=== PATIENT | male | born 1980 | race African-American/Black ===

== ENCOUNTER 2017-09-01 00:16 | Emergency (ER) | payer SELFPAY ==
[2017-09-01 00:23] VITALS: BP 123/77
[2017-09-01] MEDS ORDERED: Ketorolac INJ* 60 MG/2 ML VIAL IM ONE (01:11)
--- NOTE | 2017-09-01 02:47 | ED ---
Jose Sauceda Abhishek, scribed for Caitlin Jean-Baptiste MD on 09/01/17 at 0115 . Back Pain - HPI Summary HPI Summary: This patient is a 36 year old M presenting to [facility] with a chief complaint of back pain since 1999. Pt states it may be sciatica. Pt describes the pain as on the left side of the back and radiating to the lower back to the buttocks. The patient rates the pain 10/10 in severity. Symptoms aggravated by leg movement. Symptoms alleviated by nothing. - History of Current Complaint Chief Complaint: EDBackInjuryPain Stated Complaint: BACK INJURY Time Seen by Provider: 09/01/17 01:02 Hx Obtained From: Patient Onset/Duration: Sudden Onset Onset/Duration: Started Hours Ago - 199908/31/17 Timing: Constant Back Pain Location: Radiates To - buttocks Severity Initially: Severe Severity Currently: Severe Pain Intensity: 10 Pain Scale Used: 0-10 Numeric Aggravating Symptom(s): Movement Associated Signs And Symptoms: Positive: Negative - Allergies/Home Medications Allergies/Adverse Reactions: Allergies Allergy/AdvReac Type Severity Reaction Status Date / Time No Known Allergies Allergy Verified 09/01/17 00:22 PMH/Surg Hx/FS Hx/Imm Hx Endocrine/Hematology History: Denies: Hx Diabetes Cardiovascular History: Denies: Hx Cardiac Arrest, Hx Coronary Artery Disease Infectious Disease History: No Infectious Disease History: Denies: Traveled Outside the [place] in Last 30 Days - Family History Known Family History: Negative: Cardiac Disease, Hypertension, Diabetes - Social History Alcohol Use: Occasionally Hx Substance Use: No Substance Use Type: Reports: None Hx Tobacco Use: No Smoking Status (MU): Never Smoked Tobacco Review of Systems Constitutional: Negative Eyes: Negative ENT: Negative Cardiovascular: Negative Respiratory: Negative Gastrointestinal: Negative Genitourinary: Negative Musculoskeletal: Other - lower back pain radiating to the buttocks (left sided) Skin: Negative Neurological: Negative Psychological: Normal All Other Systems Reviewed And Are Negative: Yes Physical Exam - Summary Physical Exam Summary: VITAL SIGNS: Reviewed. GENERAL: ~Patient is a well-developed and nourished (MALE) who is lying comfortable in the stretcher. Patient is not in any acute respiratory distress. HEAD AND FACE: No signs of trauma. No ecchymosis, hematomas or skull depressions. No sinus tenderness. EYES: PERRLA, EOMI x 2, No injected conjunctiva, no nystagmus. EARS: Hearing grossly intact. Ear canals and tympanic membranes are within normal limits. MOUTH: Oropharynx within normal limits. NECK: Supple, trachea is midline, no adenopathy, no JVD, no carotid bruit, no c- spine tenderness, neck with full ROM. CHEST: Symmetric, no tenderness at palpation LUNGS: Clear to auscultation bilaterally. No wheezing or crackles. CVS: Regular rate and rhythm, S1 and S2 present, no murmurs or gallops appreciated. ABDOMEN: Soft, non-tender. No signs of distention. No rebound no guarding, and no masses palpated. Bowel sounds are normal. EXTREMITIES: FROM in all major joints, no edema, no cyanosis or clubbing. Bilateral straight leg test showed 30 degrees leg raise. Tenderness over the left lower back NEURO: Alert and oriented x 3. No acute neurological deficits. Speech is normal and follows commands. Neuro exam is intact SKIN: Dry and warm Triage Information Reviewed: Yes Vital Signs On Initial Exam: Initial Vitals Temp Pulse Resp BP Pulse Ox 98.6 F 102 16 123/77 97 09/01/17 00:18 09/01/17 00:18 09/01/17 00:18 09/01/17 00:18 09/01/17 00:18 Vital Signs Reviewed: Yes Diagnostics - Vital Signs Vital Signs Temp Pulse Resp BP Pulse Ox 09/01/17 00:18 98.6 F 102 16 123/77 97 - Laboratory Lab Statement: Any lab studies that have been ordered have been reviewed, and results considered in the medical decision making process. Back Pain Course/Dx - Course Course Of Treatment: This patient is a 36 year old M presenting to [facility] with a chief complaint of back pain since 1999. Pt describes the pain as on the left side of the back and radiating to the lower back to the buttocks. The pt recieved a muscle relaxant in the [facility] and was insistent on returning to work. Upon reevaluation, after giving the muscle relaxant, the pt was "feeling better " and his condition had improved significantly. The pt will be discharged home with a dx of lower back pain. - Diagnoses Provider Diagnoses: Lower back pain Discharge - Discharge Plan Condition: Stable Disposition: HOME Prescriptions: Cyclobenzaprine TAB* [Flexeril 10 MG TAB*] 10 mg PO TID PRN #20 tab PRN Reason: Pain - Back Ibuprofen TAB* [Motrin TAB* 800 MG] 800 mg PO Q6H PRN #30 tab PRN Reason: Pain - Back Patient Education Materials: Low Back Strain (ED) Referrals: [facility] [Outside] (follow up with PCP within 2 to 3 days) No Primary Care Phys,NOPCP [Primary Care Provider] - Additional Instructions: RETURN TO EMERGENCY DEPARTMENT FOR ANY NEW OR WORSENING SYMPTOMS The documentation as recorded by the Jose ribera Abhishek accurately reflects the service I personally performed and the decisions made by , Caitlin Jean-Baptiste MD.
== END 2017-09-01 02:42 | disposition home or self-care (01) ==
LOC: ED 00:16
DX: M54.5 Low back pain (principal)
CPT/HCPCS: 96372; 99282; J1885

== ENCOUNTER 2018-11-18 20:18 | Emergency (ER) | payer OTHER ==
[2018-11-18 20:26] VITALS: BP 140/84
--- NOTE | 2018-11-18 21:20 | ED ---
Skin Complaint - HPI Summary HPI Summary: Pt is a 37 y/o M presenting to the ED with a chief complaint of exposing himself to a bodily fluid. 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 He denies myalgia or fevers. - History of Current Complaint Chief Complaint: EDExposureBodyFluid Time Seen by Provider: 11/18/18 20:42 Stated Complaint: EXPOSURE PER PT Hx Obtained From: Patient Onset/Duration: Started Minutes Ago, Still Present Skin Exposure Onset/Duration: Minutes Ago Timing: Constant, Lasting Minutes Onset Severity: Mild Current Severity: None Pain Intensity: 0 Pain Scale Used: 0-10 Numeric Skin Location: Hand Aggravating Symptom(s): Nothing Alleviating Symptom(s): Nothing - Allergy/Home Medications Allergies/Adverse Reactions: Allergies Allergy/AdvReac Type Severity Reaction Status Date / Time No Known Allergies Allergy Verified 09/05/17 03:07 PMH/Surg Hx/FS Hx/Imm Hx Previously Healthy: Yes Endocrine/Hematology History: Denies: Hx Diabetes Cardiovascular History: Denies: Hx Cardiac Arrest, Hx Coronary Artery Disease Respiratory History: Denies: Hx Pulmonary Embolism Sensory History: Denies: Hx Legally Blind, Hx Vision Problem, Hx Deafness, Hx Hearing Aid, Hx Hearing Problem Opthamlomology History: Denies: Hx Legally Blind, Hx Vision Problem - Immunization History Date of Tetanus Vaccine: unknown Date of Influenza Vaccine: fall 2016 Infectious Disease History: No Infectious Disease History: Denies: Traveled Outside the [place] in Last 30 Days - Family History Known Family History: Negative: Cardiac Disease, Hypertension, Diabetes - Social History Alcohol Use: Occasionally Hx Substance Use: No Substance Use Type: Reports: None Hx Tobacco Use: No Smoking Status (MU): Never Smoked Tobacco Review of Systems Negative: Fever Negative: Myalgia Positive: Other - small cut on R middle finger All Other Systems Reviewed And Are Negative: Yes Physical Exam - Summary Physical Exam Summary: Appearance: Well-appearing, Well-nourished, lying in bed comfortable Skin: Warm, dry, no obvious rash. Small, barely visible laceration of the R middle finger. Eyes: sclera anicteric, no conjunctival pallor ENT: mucous membranes moist Neck: deferred Respiratory: No signs of respiratory distress Cardiovascular: Appears well perfused, pulses are nml Abdomen: deferred Musculoskeletal: Moving all 4 extremities without obvious discomfort Neurological: Awake and alert, mentation is normal, speech is fluent and appropriate Psychiatric: affect is normal, does not appear anxious or depressed Triage Information Reviewed: Yes Vital Signs On Initial Exam: Initial Vitals Temp Pulse Resp BP Pulse Ox 97.8 F 79 18 140/84 97 11/18/18 20:24 11/18/18 20:24 11/18/18 20:24 11/18/18 20:24 11/18/18 20:24 Vital Signs Reviewed: Yes Diagnostics - Vital Signs Vital Signs Temp Pulse Resp BP Pulse Ox 11/18/18 20:24 97.8 F 79 18 140/84 97 - Laboratory Lab Statement: Any lab studies that have been ordered have been reviewed, and results considered in the medical decision making process. Course/Dx - Course Course Of Treatment: Pt is a 37 y/o M presenting to the ED with a chief complaint of exposing himself to a bodily fluid. 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 The risk for exposure in this patient is very low, and I do not recommend post-exposure prophylaxis, but usual lab work will be ordered to ensure there is no infection. He will be d/c' ed home with a dx of laceration of R finger. He is stable and agreeable with this plan. - Diagnoses Provider Diagnoses: Recent laceration of finger Discharge - Sign-Out/Discharge Documenting (check all that apply): Patient Departure Patient Received Moderate/Deep Sedation with Procedure: No - Discharge Plan Condition: Stable Disposition: HOME Patient Education Materials: Laceration (ED) Referrals: [facility] [Outside] Angel Deng MD [Medical Doctor] - - Billing Disposition and Condition Condition: STABLE Disposition: Home - Attestation Statements Document Initiated by Scribe: Yes Documenting Scribe: Annabel Hendrix Provider For Whom Mohan is Documenting (Include Credential): Ricardo Byrne MD. Scribe Attestation: Annabel Sauceda scribed for Ricardo Byrne MD. on 11/22/18 at 1846. Scribe Documentation Reviewed: Yes Provider Attestation: The documentation as recorded by the Annabel ribera accurately reflects the service I personally performed and the decisions made by me, Ricardo Byrne MD. Status of Scribe Document: Viewed
[2018-11-18 21:58] LABS: Rapid HIV 1 Nonreactive (Nonreactive)
[2018-11-22 10:39] LABS: Hepatitis B Surface Antigen Nonreactive (Nonreactive)
[2018-11-22 10:57] LABS: Hepatitis B Surface Ab Not Immune (Immune)
[2018-11-22 11:03] LABS: Hepatitis C Antibody Nonreactive (Nonreactive)
== END 2018-11-18 21:20 | disposition home or self-care (01) ==
LOC: ED 20:18
DX: Z77.21 Contact with and (suspected) exposure to potentially hazardous body fluids (principal)
CPT/HCPCS: 36415; 86703; 86706; 86803; 87340; 99282

== ENCOUNTER 2019-03-20 00:03 | Emergency (ER) | payer BC, OTHER ==
--- NOTE | 2019-03-20 00:20 | ED ---
Back Pain - HPI Summary HPI Summary: The patient is a 38 y/o M presenting to [facility] with a chief complaint of sudden onset low back pain while trying to lift a heavy box tonight. He reports that he had been lifting a box with a bed frame in it, and he felt pain in the lower back. There is numbness extending from the low back into the buttocks and then into the legs. Currently, his symptoms are rated 10/10 in severity. Movement aggravates the pain, and rest alleviates it. He denies any bowel or bladder incontinence. He notes that he had a back injury over a year ago that was not treated with surgery, and he didnt have any imaging done. No PMHx. Nonsmoker, occasional EtOH, no substance use. Medications reviewed. Allergies noted. - History of Current Complaint Stated Complaint: BACK INJURY PER PT Time Seen by Provider: 03/20/19 00:13 Hx Obtained From: Patient Onset/Duration: Sudden Onset, Lasting Minutes, Still Present Onset/Duration: Started Minutes Ago, Still Present Timing: Constant Back Pain Location: Is Discrete @ - low back Severity Initially: Severe Severity Currently: Severe Pain Intensity: 10 Pain Scale Used: 0-10 Numeric Character: Sharp Aggravating Symptom(s): Movement Alleviating Symptom(s): Rest Associated Signs And Symptoms: Positive: Tingling - extending from back to buttocks and down legs. Negative: Bladder Incontinence, Bowel Incontinence - Allergies/Home Medications Allergies/Adverse Reactions: Allergies Allergy/AdvReac Type Severity Reaction Status Date / Time No Known Allergies Allergy Verified 09/05/17 03:07 PMH/Surg Hx/FS Hx/Imm Hx Endocrine/Hematology History: Denies: Hx Diabetes Cardiovascular History: Denies: Hx Cardiac Arrest, Hx Coronary Artery Disease Respiratory History: Denies: Hx Pulmonary Embolism Sensory History: Denies: Hx Legally Blind, Hx Vision Problem, Hx Deafness, Hx Hearing Aid, Hx Hearing Problem Opthamlomology History: Denies: Hx Legally Blind, Hx Vision Problem - Surgical History Surgical History: None Surgery Procedure, Year, and Place: none - Immunization History Date of Tetanus Vaccine: unknown Date of Influenza Vaccine: fall 2016 - Family History Known Family History: Negative: Cardiac Disease, Hypertension, Diabetes - Social History Alcohol Use: Occasionally Hx Substance Use: No Substance Use Type: Reports: None Hx Tobacco Use: No Smoking Status (MU): Never Smoked Tobacco Review of Systems Positive: Other - Negative: bowel incontinence Negative: incontinence Positive: Other - low back pain Positive: Numbness - from low back into buttocks and into legs All Other Systems Reviewed And Are Negative: Yes Physical Exam - Summary Physical Exam Summary: Appearance: Well-appearing, Well-nourished, lying in bed comfortably Skin: Warm, dry, no obvious rash Eyes: sclera anicteric, no conjunctival pallor ENT: mucous membranes moist, pharynx appears normal Neck: Supple, nontender Respiratory: Clear to auscultation, no signs of respiratory distress Cardiovascular: Normal S1, S2. No murmurs. Normal distal pulses in tibial and radial bilaterally. Abdomen: Soft, nontender, normal active bowel sounds present Musculoskeletal: Normal, Strength/ROM Intact Neurological: A&Ox3, awake and alert, mentation is normal, speech is fluent and appropriate, Reflexes at the knee and ankle are normal and without clonus, No sensory or motor deficit in the lower extremities Psychiatric: affect is normal, does not appear anxious or depressed Triage Information Reviewed: Yes Vital Signs Reviewed: Yes Re-Evaluation - Re-Evaluation First Eval Re-Evaluation Time: 06:00 Change: Unchanged Comment: Pt still in pain after Morphine. We will order MRI. Back Pain Course/Dx - Course Course Of Treatment: Pt is a 38 y/o M with cc of sudden onset severe low back pain onset after lifting a heavy box tonight accompanied by tingling extending from the buttocks down the legs. Upon physical exam, the pt exhibits normal reflexes at the knee and ankle without clonus, and there is no sensory or motor deficit in the lower extremities. In the ED course, the pt was administered Toradol, Morphine, and Percocet. After medications, pt is still in pain, so we will order an MRI. The patient is a sign-out from Dr. Ricardo Byrne MD, to Dr. Christopher Alonso MD, at change of shift at 0700 on 03/20/2019, pending Lumbar Spine MRI and disposition. Dx of lumbar strain. - Diagnoses Provider Diagnoses: Sciatica, Lumbar disc herniation with radiculopathy Discharge ED - Sign-Out/Discharge Documenting (check all that apply): Sign-Out Patient Signing out patient TO: Christopher Alonso - Patient is a sign-out to Dr. Christopher Alonso MD, at 0700 on 03/20/2019, pending Lumbar Spine MRI and disposition. Patient Received Moderate/Deep Sedation with Procedure: No - Discharge Plan Condition: Good Disposition: HOME Prescriptions: Naproxen TAB* [Naprosyn 250 mg TAB*] 500 mg PO Q8H PRN #28 tab PRN Reason: Pain - Severe oxyCODONE/Acetamin 5/325 MG* [Percocet 5/325 TAB*] 2 tab PO Q4H PRN #15 tab MDD 6 PRN Reason: Pain - Severe predniSONE TAB* [Deltasone TAB*] 50 mg PO DAILY #5 tab Patient Education Materials: Low Back Strain (ED) Forms: *Work Release Referrals: [facility] [Outside] Anupam Mcfadden MD [Medical Doctor] - As Soon As Possible Additional Instructions: Please follow up with Dr. Mcfadden as soon as possible, as well as [facility]. - Billing Disposition and Condition Condition: GOOD Disposition: Home - Attestation Statements Document Initiated by Scribe: Yes Documenting Scribe: Holly Love Provider For Whom Mohan is Documenting (Include Credential): Dr. Ricardo Byrne MD Scribe Attestation: IHolly scribed for Dr. Ricardo Byrne MD on 03/20/19 at 1836. Scribe Documentation Reviewed: Yes Provider Attestation: The documentation as recorded by the Holly ribera accurately reflects the service I personally performed and the decisions made by me, Dr. Ricardo Byrne MD Status of Scribe Document: Viewed
[2019-03-20] MEDS ORDERED: Ketorolac INJ* 30 MG/ML 1 ML VIAL IV PUSH ONE (00:27)
[2019-03-20] MEDS ORDERED: Morphine 4 MG/ML VIAL (1 ml) 4 MG/ML VIAL IV ONE (00:27)
[2019-03-20] MEDS ORDERED: oxyCODONE/Acetamin 5/325 MG* TAB PO ONE (02:33)
--- NOTE | 2019-03-20 07:27 | ED ---
Progress - Progress Note Progress Note: Pt is a signout from Dr. Byrne at 0700 on 03/20/19 pending MRI of the lumbar spine. - Results/Orders Results/Orders: Lumbar spine MRI shows: LEFT-SIDED DISC PROTRUSION AT L5-S1. ED physician has reviewed this report. Re-Evaluation - Re-Evaluation First Eval Re-Evaluation Time: 08:11 Change: Unchanged Comment: Currently in imaging. 2nd re-eval Re-Evaluation Time: 10:00 Change: Unchanged Comment: Pt states his pain is around a 6 and is worse with movement. Course/Dx - Course Course Of Treatment: Pt is a signout from Dr. Byrne at 0700 on 03/20/19 pending MRI of the lumbar spine. Pt in imaging at 0811. Lumbar MRI shows: LEFT-SIDED DISC PROTRUSION AT L5-S1. As of 1000, pt states his pain is around a 6 and is worse with movement. He will be d/c'ed with dx of sciatica. He will be instructed to f/u with . - Diagnoses Provider Diagnoses: Sciatica Discharge ED - Sign-Out/Discharge Documenting (check all that apply): Patient Departure, Receiving Sign-Out Receiving patient FROM: Ricardo Byrne Patient Received Moderate/Deep Sedation with Procedure: No - Discharge Plan Condition: Good Disposition: HOME Prescriptions: Naproxen TAB* [Naprosyn 250 mg TAB*] 500 mg PO Q8H PRN #28 tab PRN Reason: Pain - Severe oxyCODONE/Acetamin 5/325 MG* [Percocet 5/325 TAB*] 2 tab PO Q4H PRN #15 tab MDD 6 PRN Reason: Pain - Severe predniSONE TAB* [Deltasone TAB*] 50 mg PO DAILY #5 tab Patient Education Materials: Low Back Strain (ED) Forms: *Work Release Referrals: Anupam Mcfadden MD [Medical Doctor] - As Soon As Possible [facility] [Outside] Additional Instructions: Please follow up with Dr. Mcfadden as soon as possible, as well as [facility]. - Attestation Statements Document Initiated by Scribe: Yes Documenting Scribe: Annabel Hendrix Provider For Whom Scribe is Documenting (Include Credential): Christopher Alonso MD. Scribe Attestation: I, Annabel Hendrix, scribed for Christopher Alonso MD. on 03/20/19 at 1040. Status of Scribe Document: Ready
[2019-03-20] MEDS ORDERED: predniSONE TAB* 20 MG PO ONE (08:38)
[2019-03-20 11:21] VITALS: BP 112/74
== END 2019-03-20 10:45 | disposition home or self-care (01) ==
LOC: ED 00:03
DX: M54.30 Sciatica, unspecified side (principal); M51.26 Other intervertebral disc displacement, lumbar region; Z79.899 Other long term (current) drug therapy
CPT/HCPCS: 72148; 96374; 96375; 99282; A9270-GY; J1885; J2270; J7512

== ENCOUNTER 2019-08-20 23:14 | Emergency (ER) | payer BC ==
[2019-08-20 23:18] VITALS: BP 154/69
--- OUTSIDE RECORDS SUMMARY | 2019-08-20 23:28 | XMS REPORT | Continuity of Care Document ---
:1980 External Reference #:[id number] Author Name Angel Diallo MD (transmitted by agent of provider Sheridan Mclaen) Address [address] [place] [address] Care Team Providers Name Role Phone Topher Nevarez MD - Urology Care Team Information Duct Maker [phone] Angel Diallo MD - Hospitalist Care Team Information Duct Maker [phone] Problems Active Problems Provider Date Encounter for sterilization Angel Diallo MD Onset: 07/10/2019 H/O: vasectomy Angel Diallo MD Onset: 07/10/2019 Acne Angel Diallo MD Onset: 07/10/2019 Elevated blood-pressure reading without Chuckie Payne M.D. Onset: 2015 diagnosis of hypertension Chronic prostatitis Chuckie Payne M.D. 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 Social History Type Date Description Comments Sex Unknown ETOH Use Occasionally consumes alcohol Tobacco Use Start: Unknown Patient has never smoked Recreational Drug Use Denies Drug Use Smoking Status Reviewed: 07/10/19 Patient has never smoked Exercise Type/Frequency Exercises regularly Allergies, Adverse Reactions, Alerts Description No Known Drug Allergies Medications Description No Active Medications Immunizations Description No Information Available Vital Signs Date Vital Result Comment 07/10/2019 3:24pm Height 73 inches 6'1" Weight 293.00 lb Heart Rate 75 /min BP Systolic 128 mmHg BP Diastolic 80 mmHg Body Temperature 98.0 F O2 % BldC Oximetry 97 % BMI (Body Mass Index) 38.7 kg/m2 06/19/2019 10:27am Height 73 inches 6'1" Weight 284.00 lb Heart Rate 82 /min BP Systolic Sitting 132 mmHg BP Diastolic Sitting 88 mmHg Respiratory Rate 16 /min BMI (Body Mass Index) 37.5 kg/m2 Results Description No Information Available Procedures Description No Information Available Medical Devices Description No Information Available Encounters Type Date Location Provider Dx Diagnosis Office Visit 06/19/2019 Neuro[facility] M51.36 Other intervertebral 10:30a [facility]a Felix MD disc degeneration, lumbar region M51.27 Other intervertebral disc displacement, lumbosacral region Assessments Date Code Description Provider 07/10/2019 L73.0 Acne keloid Angel Diallo MD 07/10/2019 Z30.2 Encounter for sterilization Angel Diallo MD 07/10/2019 Z98.52 Vasectomy status Angel Diallo MD 06/19/2019 M51.36 Other intervertebral disc degeneration, Mary Felix MD lumbar region 06/19/2019 M51.27 Other intervertebral disc displacement, Mary Felix MD lumbosacral region Plan of Treatment 07/10/2019 - Angel Diallo MDL73.0 Acne keloidReferral:Demetrio Monterroso MD, DermatologyFollow up:as needed.Z30.2 Encounter for [id number] Vasectomy statusReferral:Topher Nevarez MD, Urology Functional Status Description No Information Available Mental Status Description No Information Available Referrals Refer to Dr Reason for Referral Status Appt Date Topher Nevarez MD Very interested in vasectomy. and patient Created always planned just [facility] child[address] [facility] [place] [address] [place] [address] [phone] Demetrio Monterroso MD suspect large keloid developing under chin. Created [address] [facility], [place] [address] [phone]
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
== END 2019-08-20 23:49 | disposition home or self-care (01) ==
LOC: ED 23:14
DX: Z77.21 Contact with and (suspected) exposure to potentially hazardous body fluids (principal)
CPT/HCPCS: 99282